=== PATIENT | male | born 1970 | race Caucasian/White ===

== ENCOUNTER 2021-11-07 06:52 | Emergency (ER) | payer OTHER ==
[~2021-11-07] VITALS: Ht 185.4 cm; Wt 82.4 kg
[2021-11-07] MEDS ORDERED: IV NORMAL SALINE 1,000ML 1,000 ML IV SCH (07:15)
--- NOTE | 2021-11-07 07:25 | PHYS DOC ---
Adult General Chief Complaint Chief Complaint: RAPID HEART RATE HPI HPI Patient is a 51 year old male who presents with complaint of racing heartbeat. The patient states he awoke this morning at 0600 with a sensation that his heart was racing. He states that this continued until presenting to the emergency department for a total of approximately 45 to 50 minutes. At this time he states that it has resolved. Patient denied any associated chest pain, shortness of breath, nausea, dizziness, or diaphoresis. Patient states that he has had previous history of pneumonia induced myocarditis and most recently had what his customer assistance associate diagnosed as pericarditis after he was hospitalized 1 year ago for 36 hours with an episode of racing heart rate, diaphoresis, and dizziness. He states that he was not diagnosed with this at the hospital but his customer assistance associate diagnosed this when he was reevaluated after hospitalization. Denies history of myocardial infarction or congestive heart failure. He states currently he is experiencing no symptoms. Denies any recent illness or fever. Review of Systems Review of Systems Constitutional: Denies fever or chills [] Eyes: Denies change in visual acuity, redness, or eye pain [] HENT: Denies nasal congestion or sore throat [] Respiratory: Denies cough or shortness of breath [] Cardiovascular: Tachycardia, denies chest pain or edema [] GI: Denies abdominal pain, nausea, vomiting, bloody stools or diarrhea [] : Denies dysuria or hematuria [] Musculoskeletal: Denies back pain or joint pain [] Integument: Denies rash or skin lesions [] Neurologic: Denies headache, focal weakness or sensory changes [] All other systems were reviewed and found to be within normal limits, except as documented in this note. Current Medications Current Medications Current Medications Medications (Trade) Dose Ordered Sig/[facility] Start Time Stop Time Status Last Admin Dose Admin Sodium Chloride 1,000 ml @ 1,000 mls/hr Q1H 11/07/21 07:15 11/07/21 08:14 UNV Allergies Allergies Allergies Coded Allergies Type Severity Reaction Last Updated Verified No Known Drug Allergies 11/07/21 No Physical Exam Physical Exam Constitutional: Well developed, well nourished, no acute distress, non-toxic appearance. [] HENT: Normocephalic, atraumatic, bilateral external ears normal, oropharynx moist, no oral exudates, nose normal. [] Eyes: PERRLA, EOMI, conjunctiva normal, no discharge. [] Neck: Normal range of motion, no tenderness, supple, no stridor. [] Cardiovascular:Heart rate regular rhythm, no murmur [] Lungs & Thorax: Bilateral breath sounds clear to auscultation [] Abdomen: Bowel sounds normal, soft, no tenderness, no masses, no pulsatile masses. [] Skin: Warm, dry, no erythema, no rash. [] Back: No tenderness, no CVA tenderness. [] Extremities: No tenderness, no cyanosis, no clubbing, ROM intact, no edema. [] Neurologic: Alert and oriented X 3, normal motor function, normal sensory function, no focal deficits noted. [] Current Patient Data Vital Signs Vital Signs Date Time Temp Pulse Resp B/P (MAP) Pulse Ox O2 Delivery O2 Flow Rate FiO2 11/07/21 07:15 98.4 62 20 127/83 (98) 99 Room Air Lab Results Laboratory Tests Test 11/07/21 07:23 White Blood Count 6.6 x10^3/uL Red Blood Count 4.83 x10^6/uL Hemoglobin 13.9 g/dL Hematocrit 41.3 % Mean Corpuscular Volume 86 fL Mean Corpuscular Hemoglobin 29 pg Mean Corpuscular Hemoglobin Concent 34 g/dL Red Cell Distribution Width 13.4 % Platelet Count 236 x10^3/uL Neutrophils (%) (Auto) 70 % Lymphocytes (%) (Auto) 18 % Monocytes (%) (Auto) 9 % Eosinophils (%) (Auto) 3 % Basophils (%) (Auto) 1 % Neutrophils # (Auto) 4.6 x10^3uL Lymphocytes # (Auto) 1.2 x10^3/uL Monocytes # (Auto) 0.6 x10^3/uL Eosinophils # (Auto) 0.2 x10^3/uL Basophils # (Auto) 0.0 x10^3/uL Sodium Level 139 mmol/L Potassium Level 3.9 mmol/L Chloride Level 104 mmol/L Carbon Dioxide Level 28 mmol/L Anion Gap 7 Blood Urea Nitrogen 15 mg/dL Creatinine 0.8 mg/dL Estimated GFR (Cockcroft-Gault) 101.5 BUN/Creatinine Ratio 19 Glucose Level 90 mg/dL Calcium Level 9.2 mg/dL Magnesium Level 2.1 mg/dL Total Bilirubin 0.4 mg/dL Aspartate Amino Transf (AST/SGOT) 19 U/L Alanine Aminotransferase (ALT/SGPT) 31 U/L Alkaline Phosphatase 63 U/L Total Protein 7.3 g/dL Albumin 3.9 g/dL Albumin/Globulin Ratio 1.1 Current Medications Medications (Trade) Dose Ordered Sig/[facility] Route PRN Reason Start Time Stop Time Status Last Admin Dose Admin Sodium Chloride 1,000 ml @ 1,000 mls/hr Q1H IV 11/07/21 07:15 11/07/21 08:15 DC 11/07/21 07:15 EKG EKG EKG #1 performed at 0717 interpreted by me: Heart rate 54, sinus rhythm, normal intervals, normal axis, no acute ST/T wave abnormalities present EKG #2 performed at 0850 interpreted by me: Heart rate 59, sinus rhythm, normal intervals, normal axis, no acute ST/T wave abnormalities, no acute changes from previous EKG. [] Radiology/Procedures Radiology/[place] [address] IMAGING REPORT Signed PATIENT: JUNIOR STRONG ACCOUNT: [id number] : 1970 LOCATION: ER AGE: 51 SEX: M EXAM STATUS: REG ER ORD. PHYSICIAN: JESSICA GARCIA MD REASON: Reports tachycardia prior to arrival PROCEDURE: CHEST PA & LATERAL Chest radiograph 11/07/2021 7:30 AM INDICATION: Tachycardia COMPARISON: CT chest 06/13/2011 TECHNIQUE: Frontal and lateral views of the chest are provided. FINDINGS: The cardiomediastinal silhouette is within normal limits. There are no pleural effusions. There is no pulmonary vascular congestion. There is no pneumothorax. The lungs are clear. There is scarring in the medial right lower lobe. No significant osseous abnormality is identified. IMPRESSION: No acute cardiopulmonary process. Electronically signed by: Florian Sinha MD (11/07/2021 7:41 AM) [id number] DICTATED AND SIGNED BY: FLORIAN SINHA MD DATE: 11/07/21 0740 CC: GEORGINA SALAZAR; JESSICA GARCIA MD ~ [] Heart Score C/O Chest Pain: No Risk Factors: Risk Factors: DM, Current or recent (<one month) smoker, HTN, HLP, family history of CAD, obesity. Risk Scores: Risk Factors: DM, Current or recent (<one month) smoker, HTN, HLP, family history of CAD, obesity. Course & Med Decision Making Course & Med Decision Making Pertinent Labs and Imaging studies reviewed. (See chart for details) Patient was administered IV fluids and kept on continuous cardiac monitoring throughout his entire emergency department visit. The patient showed no change in rhythm at any time and maintain normal vital signs. Patient's blood work was reviewed and unremarkable. Serial EKGs were performed and showed no acute changes. Condition at this time appears stable and patient is appropriate for discharge. Advised rest and oral hydration. I have recommended close follow-up with patient's customer assistance associate in the next 1 to 2 days for reevaluation. Recommend return to the emergency department for any worsening symptoms. Patient voiced understanding and in agreement with treatment plan. [] Dragon Disclaimer Dragon Disclaimer This electronic medical record was generated, in whole or in part, using a voice recognition dictation system. Departure Departure: Impression: Primary Impression: Palpitations Disposition: 01 HOME / SELF CARE / HOMELESS Condition: STABLE Referrals: GEORGINA SALAZAR (PCP) Patient Instructions: Palpitations Additional Instructions: Follow-up with your customer assistance associate in the next 1 to 2 days for reevaluation. Return to the emergency department for any worsening symptoms. JESSICA GARCIA MD November 07, 2021 07:25
--- NOTE | 2021-11-07 07:43 | RAD ---
Chest radiograph 11/07/2021 7:30 AM INDICATION: Tachycardia COMPARISON: CT chest 06/13/2011 TECHNIQUE: Frontal and lateral views of the chest are provided. FINDINGS: The cardiomediastinal silhouette is within normal limits. There are no pleural effusions. There is no pulmonary vascular congestion. There is no pneumothorax. The lungs are clear. There is scarring in the medial right lower lobe. No significant osseous abnormality is identified. IMPRESSION: No acute cardiopulmonary process. Electronically signed by: Ioana Siu MD (11/07/2021 7:41 AM) [id number]
[2021-11-07 07:58] LABS: BASO % 1 % (0-3); EOS # 0.2 x10^3/uL (0.0-0.7); EOS % 3 % (0-3); HEMATOCRIT 41.3 % (39.0-53.0); HEMOGLOBIN 13.9 g/dL (13.0-17.5); LYMPH # 1.2 x10^3/uL (1.0-4.8); LYMPH % 18 % (24-48); MEAN CORPUSCULAR HEMOGLOBIN 29 pg (25-35); MEAN CORPUSCULAR HGB CONC 34 g/dL (31-37); MEAN CORPUSCULAR VOLUME 86 fL (79-100); MONO # 0.6 x10^3/uL (0.0-1.1); MONO % 9 % (0-9); NEUT # 4.6 x10^3uL (1.8-7.7); NEUT % 70 % (31-73); PLATELET COUNT 236 x10^3/uL (140-400); RED BLOOD COUNT 4.83 x10^6/uL (4.30-5.70); RED CELL DISTRIBUTION WIDTH 13.4 % (11.5-14.5); WHITE BLOOD COUNT 6.6 x10^3/uL (4.0-11.0)
[2021-11-07 08:34] LABS: CALCIUM 9.2 mg/dL (8.5-10.1); CREATININE 0.8 mg/dL (0.7-1.3); GFR 101.5; POTASSIUM 3.9 mmol/L (3.5-5.1)
[2021-11-07 08:40] LABS: ALBUMIN 3.9 g/dL (3.4-5.0); ALBUMIN/GLOBULIN RATIO 1.1 (1.0-1.7); MAGNESIUM 2.1 mg/dL (1.8-2.4); TOTAL BILIRUBIN 0.4 mg/dL (0.2-1.0); TOTAL PROTEIN 7.3 g/dL (6.4-8.2)
[2021-11-07 09:28] VITALS: BP 122/86
== END 2021-11-07 09:20 | disposition home or self-care (01) ==
LOC: ER 06:52
DX: R00.2 Palpitations (principal); R00.0 Tachycardia, unspecified; R61 Generalized hyperhidrosis; R42 Dizziness and giddiness
CPT/HCPCS: 36415; 71046; 80053; 83735; 85025; 93005; 96360; 96361; 99285; J7030